=== PATIENT | female | born 1945 | race Caucasian/White ===

== ENCOUNTER 2018-03-11 08:47 | Day surgery (SDC) | payer MEDICARE, BC ==
[2018-03-11] MEDS ORDERED: ACETAZOLAMIDE 250 MG PO ONE (09:00)
[2018-03-11] MEDS: PROPARACAINE HCL 0.5% OPHTHALMIC SOL ONE ×3 (09:07→10:30)
[2018-03-11] MEDS: PHENYLEPHRINE HCL 10% OPHTHAL SOL ONE ×2 (09:08→09:26)
[2018-03-11] MEDS: CYCLOPENTOLATE 1% SOL ONE ×2 (09:09→09:26)
[2018-03-11] MEDS: KETOROLAC 0.5% OPTH 60 DROP SOL ONE ×2 (09:10→09:27)
[2018-03-11] MEDS ORDERED: MIDAZOLAM 2 MG/2 ML SOL ONE (09:58)
[2018-03-11] MEDS ORDERED: FENTANYL 100MCG/2ML SOL ONE (09:58)
[2018-03-11] MEDS ORDERED: LIDOCAINE HCL 1% MPF SOL ONE (10:22)
[2018-03-11] MEDS ORDERED: POVIDONE IODINE 5% SOL ONE (10:22)
[2018-03-11] MEDS ORDERED: BSS 500 ML 500 ML IR ONE (10:22)
[2018-03-11 11:11] VITALS: BP 143/71; PULSE 60; RESP 20; TEMP 97.9; O2SAT 97
== END 2018-03-11 11:25 | disposition home or self-care (01) | DRG 125 ==
LOC: SURG 08:47
PROVIDERS: ATTEND Ophthalmology
DX: H26.9 Unspecified cataract (principal)
CPT/HCPCS: J2250; J3010; A9270-GY; J2001